=== PATIENT | male | born 1995 | race Caucasian/White ===

== ENCOUNTER 2017-10-09 10:56 | Emergency (ER) | payer OTHER ==
--- NOTE | 2017-10-09 11:32 | ER Document Report ---
ED Medical Screen (RME) - General Chief Complaint: Overdose Stated Complaint: POSSIBLE OVERDOSE Time Seen by Provider: 10/09/17 11:31 Notes: 22 years old male took 30 tablets of Tylenol 325 mg or 500 mg is not sugar and also took some hydrocodone liquid form. This morning around 8:00 with the intention of ending his life. He says he has been depressed and suicidal. His has left with his 2 children to [place]. He has no way of seeing them. And also going on a lot of other stresses. At age 18 he has a episode of depression and suicidal TRAVEL OUTSIDE OF THE [place] IN LAST 30 DAYS: No - Related Data Allergies/Adverse Reactions: No Known Allergies Allergy (Verified 10/09/17 11:28) Past Medical History - Social History Chew tobacco use (# tins/day): Yes Frequency of alcohol use: Occasional Drug Abuse: Cocaine Renal/ Medical History: Denies: Hx Peritoneal Dialysis Physical Exam - Vital signs Vitals: Temp Pulse Resp BP Pulse Ox 97.8 F 77 14 137/88 H 99 10/09/17 11:02 10/09/17 11:02 10/09/17 11:02 10/09/17 11:02 10/09/17 11:02 Course - Vital Signs Vital signs: Temp Pulse Resp BP Pulse Ox 97.8 F 77 14 137/88 H 99 10/09/17 11:02 10/09/17 11:02 10/09/17 11:02 10/09/17 11:02 10/09/17 11:02
[2017-10-09 11:44] VITALS: BP 137/88
[2017-10-09 11:51] LABS: ABSOLUTE EOSINOPHILS # (AUTO) 0.1 10^3/uL (0.0-0.6); ABSOLUTE LYMPHOCYTES (AUTO) 0.9 10^3/uL (0.5-4.7); ABSOLUTE MONOCYTES (AUTO) 0.8 10^3/uL (0.1-1.4); ABSOLUTE NEUT (AUTO) 7.1 10^3/uL (1.7-8.2); BASOPHILS % (AUTO) 0.3 % (0-2); EOSINOPHILS % (AUTO) 1.6 % (0-6); HEMATOCRIT 47.5 % (37.9-51.0); HEMOGLOBIN 16.6 g/dL (13.5-17.0); LYMPHOCYTES % (AUTO) 10.6 % (13-45); MEAN CORPUSCULAR HEMOGLOBIN 30.4 pg (27.0-33.4); MEAN CORPUSCULAR HGB CONC 34.9 g/dL (32.0-36.0); MEAN CORPUSCULAR VOLUME 87 fl (80-97); MONOCYTES % (AUTO) 8.5 % (3-13); PLATELET COUNT 390 10^3/uL (150-450); RED BLOOD COUNT 5.46 10^6/uL (4.35-5.55); TOTAL CELLS COUNTED % (AUTO) 100 %; WHITE BLOOD COUNT 8.9 10^3/uL (4.0-10.5)
[2017-10-09 12:19] LABS: ACETAMINOPHEN 29 ug/mL (10-30); ALANINE AMINOTRANSFERASE 31 U/L (21-72); ALBUMIN 4.4 g/dL (3.5-5.0); ALCOHOL < 10 mg/dL (NONE DETECTED); ALKALINE PHOSPHATASE 51 U/L (38-126); ANION GAP 16 (5-19); ASPARTATE AMINO TRANSFERASE 26 U/L (17-59); BILIRUBIN,DIRECT 0.3 mg/dL (0.0-0.4); BILIRUBIN,TOTAL 0.4 mg/dL (0.2-1.3); BLOOD UREA NITROGEN 8 mg/dL (7-20); CALCIUM 9.8 mg/dL (8.4-10.2); CARBON DIOXIDE 28 mmol/L (22-30); CHLORIDE 102 mmol/L (98-107); GLUCOSE 128 mg/dL (75-110); POTASSIUM 4.3 mmol/L (3.6-5.0); SODIUM 145.8 mmol/L (137-145); TOTAL PROTEIN 7.7 g/dL (6.3-8.2)
--- NOTE | 2017-10-09 13:01 | ER Document Report ---
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 Patient states that he took a handful of Tylenol at about 8:00 this morning. Had a vomiting episode afterwards. States that his father recently , his left him and he has nothing else to live for. This was an intentional overdose. States that he wanted to hurt himself. Has any symptoms at this time. States that he is hungry. Denies any other ingestions. TRAVEL OUTSIDE OF THE [place] IN LAST 30 DAYS: No - HPI Patient complains to provider of: Suicidal ideation, Suicidal attempt Onset: This morning Onset was: Sudden Severity: None Pain Level: Denies - Related Data Allergies/Adverse Reactions: No Known Allergies Allergy (Verified 10/09/17 11:28) Past Medical History - General Information source: Patient - Social History Smoking Status: Current Every Day Smoker Cigarette use (# per day): Yes Chew tobacco use (# tins/day): Yes Frequency of alcohol use: Occasional Drug Abuse: Cocaine Lives with: Alone Family History: Reviewed & Not Pertinent Patient has suicidal ideation: No Patient has homicidal ideation: No - Medical History Medical History: Negative Renal/ Medical History: Denies: Hx Peritoneal Dialysis Review of Systems - Review of Systems Constitutional: denies: Fever, Malaise, Weakness EENT: denies: Double vision, Difficulty swallowing, Throat swelling, Mouth pain Cardiovascular: denies: Chest pain, Palpitations, Heart racing Respiratory: denies: Cough, Hurts to breathe, Short of breath, Wheezing Gastrointestinal: Nausea, Vomiting. denies: Abdominal pain, Diarrhea Genitourinary: denies: Burning, Dysuria, Flank pain Male Genitourinary: denies: Testicular pain, Penile discharge Musculoskeletal: denies: Back pain, Joint pain, Muscle pain Skin: denies: Dryness, Lesions, Lumps, Rash Hematologic/Lymphatic: denies: Anemia, Blood clots, Easy bleeding, Easy bruising Neurological/Psychological: Other - Depressed. denies: Confusion, Weakness, Numbness Physical Exam - Vital signs Vitals: Temp Pulse Resp BP Pulse Ox 97.8 F 77 14 137/88 H 99 10/09/17 11:02 10/09/17 11:02 10/09/17 11:02 10/09/17 11:02 10/09/17 11:02 Interpretation: Normal - General General appearance: Appears well, Alert - HEENT Head: Normocephalic, Atraumatic Eyes: Normal Pupils: PERRL - Respiratory Respiratory status: No respiratory distress Chest status: Nontender Breath sounds: Normal Chest palpation: Normal - Cardiovascular Rhythm: Regular Heart sounds: Normal auscultation Murmur: No - Abdominal Inspection: Normal Distension: No distension Bowel sounds: Normal Tenderness: Nontender Organomegaly: No organomegaly - Back Back: Normal, Nontender - Extremities General upper extremity: Normal inspection, Nontender, Normal color, Normal ROM , Normal temperature General lower extremity: Normal inspection, Nontender, Normal color, Normal ROM , Normal temperature, Normal weight bearing. No: Valentín's sign - Neurological Neuro grossly intact: Yes Cognition: Normal Orientation: AAOx4 Merrill Coma Scale Eye Opening: Spontaneous [place] Coma Scale Verbal: Oriented [place] Coma Scale Motor: Obeys Commands Merrill Coma Scale Total: 15 Speech: Normal Motor strength normal: LUE, RUE, LLE, RLE Sensory: Normal - Psychological Associated symptoms: Normal affect, Normal mood - Skin Skin Temperature: Warm Skin Moisture: Dry Skin Color: Normal Course - Re-evaluation Re-evalutation: 10/09/17 15:30 Laboratory 10/09/17 10/09/17 10/09/17 11:40 11:40 11:42 WBC 8.9 RBC 5.46 Hgb 16.6 Hct 47.5 MCV 87 MCH 30.4 MCHC 34.9 RDW 13.0 Plt Count 390 Seg Neutrophils % 79.0 H Lymphocytes % 10.6 L Monocytes % 8.5 Eosinophils % 1.6 Basophils % 0.3 Absolute Neutrophils 7.1 Absolute Lymphocytes 0.9 Absolute Monocytes 0.8 Absolute Eosinophils 0.1 Absolute Basophils 0.0 Sodium Potassium Chloride Carbon Dioxide Anion Gap BUN Creatinine Est GFR ( Amer) Est GFR (Non-Af Amer) Glucose Calcium Total Bilirubin Direct Bilirubin Neonat Total Bilirubin Neonat Direct Bilirubin Neonat Indirect Bili AST ALT Alkaline Phosphatase Total Protein Albumin Urine Color YELLOW Urine Appearance CLOUDY Urine pH 6.0 Ur Specific Brun[place] 1.027 Urine Protein NEGATIVE Urine Glucose (UA) 150 H Urine Ketones NEGATIVE Urine Blood NEGATIVE Urine Nitrite NEGATIVE Urine Bilirubin NEGATIVE Urine Urobilinogen NEGATIVE Ur Leukocyte Esterase NEGATIVE Urine WBC (Auto) 5 Urine RBC (Auto) 1 Amorphous Sediment Auto TRACE Urine Mucus (Auto) FEW Urine Ascorbic Acid NEGATIVE Salicylates Urine Opiates Screen UNCONFIRMED POSITIVE Urine Methadone Screen NEGATIVE Acetaminophen Ur Barbiturates Screen NEGATIVE Ur Phencyclidine Scrn NEGATIVE Ur Amphetamines Screen NEGATIVE U Benzodiazepines Scrn NEGATIVE Urine Cocaine Screen UNCONFIRMED POSITIVE U Marijuana (THC) Screen NEGATIVE Serum Alcohol 10/09/17 10/09/17 11:42 14:35 WBC RBC Hgb Hct MCV MCH MCHC RDW Plt Count Seg Neutrophils % Lymphocytes % Monocytes % Eosinophils % Basophils % Absolute Neutrophils Absolute Lymphocytes Absolute Monocytes Absolute Eosinophils Absolute Basophils Sodium 145.8 H Potassium 4.3 Chloride 102 Carbon Dioxide 28 Anion Gap 16 BUN 8 Creatinine 0.95 Est GFR ( Amer) > 60 Est GFR (Non-Af Amer) > 60 Glucose 128 H Calcium 9.8 Total Bilirubin 0.4 Direct Bilirubin 0.3 Neonat Total Bilirubin Not Reportable Neonat Direct Bilirubin Not Reportable Neonat Indirect Bili Not Reportable AST 26 ALT 31 Alkaline Phosphatase 51 Total Protein 7.7 Albumin 4.4 Urine Color Urine Appearance Urine pH Ur Specific Brun[place] Urine Protein Urine Glucose (UA) Urine Ketones Urine Blood Urine Nitrite Urine Bilirubin Urine Urobilinogen Ur Leukocyte Esterase Urine WBC (Auto) Urine RBC (Auto) Amorphous Sediment Auto Urine Mucus (Auto) Urine Ascorbic Acid Salicylates 15.0 Urine Opiates Screen Urine Methadone Screen Acetaminophen 29 16 Ur Barbiturates Screen Ur Phencyclidine Scrn Ur Amphetamines Screen U Benzodiazepines Scrn Urine Cocaine Screen U Marijuana (THC) Screen Serum Alcohol < 10 Repeat Tylenol performed. Not going up a coming down. Rest of his labs are unremarkable with exception of the cocaine and narcotics. Patient has been accepted by [facility] Trudy Willams. Will DC at this time to the custody of command wraps to proceed directly to the emergency department at [facility] to be checked in and taken to [facility]. - Vital Signs Vital signs: Temp Pulse Resp BP Pulse Ox 97.8 F 77 14 137/88 H 99 10/09/17 11:02 10/09/17 11:02 10/09/17 11:02 10/09/17 11:02 10/09/17 11:02 - Laboratory Result Diagrams: 10/09/17 11:42 10/09/17 11:42 Laboratory results interpreted by me: 10/09/17 10/09/17 10/09/17 11:40 11:42 11:42 Seg Neutrophils % 79.0 H Lymphocytes % 10.6 L Sodium 145.8 H Glucose 128 H Urine Glucose (UA) 150 H Discharge - Discharge Clinical Impression: Suicidal ideation Overdose on Tylenol Qualifiers: Encounter type: initial encounter Injury intent: intentional self-harm Qualified Code(s): T39.1X2A - Poisoning by 4-Aminophenol derivatives, intentional self-harm, initial encounter Condition: Good Disposition: [facility] Instructions: Overdose / Ingestion ([facility]), Suicidal Ideation ([facility]) Additional Instructions: Please proceed immediately to the hospital at [place]. Check in at the emergency department.
--- NOTE | 2017-10-09 13:17 | EKG REPORT ---
SEVERITY:- OTHERWISE NORMAL ECG - SINUS RHYTHM BORDERLINE RIGHT AXIS DEVIATION : Confirmed by: Renetta Cui MD 09-Oct-2017 13:17:11
[2017-10-09 14:17] LABS: AMORPHOUS SEDIMENT,URINE TRACE /HPF; APPEARANCE,URINE CLOUDY; BILIRUBIN,URINE NEGATIVE (NEGATIVE); COLOR,URINE YELLOW; GLUCOSE, URINE 150 mg/dL (NEGATIVE); KETONES,URINE NEGATIVE (NEGATIVE); LEUKOCYTE ESTERASE,URINE NEGATIVE (NEGATIVE); NITRITE,URINE NEGATIVE (NEGATIVE); PROTEIN,URINE NEGATIVE (NEGATIVE); URINE SPECIFIC GRAVITY 1.027; UROBILINOGEN,URINE NEGATIVE mg/dL (<2.0)
[2017-10-09 14:25] LABS: URINE AMPHETAMINES SCREEN NEGATIVE; URINE BARBITURATES SCREEN NEGATIVE; URINE BENZODIAZEPINES SCREEN NEGATIVE; URINE COCAINE SCREEN UNCONFIRMED POSITIVE; URINE MARIJUANA (THC) SCREEN NEGATIVE; URINE METHADONE SCREEN NEGATIVE; URINE PHENCYCLIDINE SCREEN NEGATIVE
== END 2017-10-09 16:42 ==
LOC: ER 10:56
DX: T39.1X2A Poisoning by 4-Aminophenol derivatives, intentional self-harm, initial encounter (principal); R45.851 Suicidal ideations; F17.210 Nicotine dependence, cigarettes, uncomplicated; X58.XXXA Exposure to other specified factors, initial encounter
CPT/HCPCS: 36415; 80053; 80307; 81001; 85025; 93005; 93010; 99284